=== PATIENT | female | born 2000 | race Caucasian/White ===

== ENCOUNTER 2023-10-17 06:30 | Inpatient (IN) | payer OTHER ==
[2023-10-17] MEDS ORDERED: AMPICILLIN SODIUM 2 GM VIAL ONE (07:45)
[2023-10-17] MEDS: ELECTROLYTE-148 SOLN 1,000 ML IV SCH (08:00)
[2023-10-17] MEDS: AMPICILLIN - 2 GM in SODIUM CHLORIDE 100 ML IVPB ONE (08:00)
[2023-10-17 08:29] VITALS: BMI 42.5
[2023-10-17 09:02] LABS: BASO % 0.2 % (0-2.0); EOS % 0.3 % (0-4.5); HEMATOCRIT 31.7 % (32.4-45.2); HEMOGLOBIN 10.2 GM/dL (10.7-15.3); LYMPH % 18.6 % (8-40); MCH 26.5 pg (25.7-33.7); MCHC 32.2 g/dl (32.0-36.0); MEAN CELL VOLUME 82.4 fl (80-96); MEAN PLT VOLUME 7.8 fl (7.5-11.1); MONO % 11.4 % (3.8-10.2); NEUT % 69.5 % (42.8-82.8); PLATELET COUNT 257 10^3/uL (134-434); RBC 3.85 M/mm3 (3.60-5.2); RDW 17.3 % (11.6-15.6); WHITE BLOOD COUNT 13.4 K/mm3 (4.0-10.0)
[2023-10-17 09:03] LABS: INR 0.96 (0.83-1.09)
[2023-10-17 09:06] LABS: ACTIVATED PTT 26.9 SECONDS (25.2-36.5)
[2023-10-17] MEDS ORDERED: OXYTOCIN 30 UNITS in 0.9% NS 30 UNIT/500 ML INFUS.BAG IVPB ONE ×2 (09:06→21:47)
[2023-10-17] MEDS: OXYTOCIN 30 UNITS in 0.9% NS 30 UNIT/500 ML INFUS.BAG IVPB SCH (09:10)
[2023-10-17 09:20] LABS: POTASSIUM 3.9 mmol/L (3.5-5.1)
[2023-10-17 09:21] LABS: CALCIUM 9.2 mg/dL (8.5-10.1)
[2023-10-17 09:22] LABS: BLOOD UREA NITROGEN 8.9 mg/dL (7-18)
[2023-10-17 09:25] LABS: CREATININE 0.6 mg/dL (0.55-1.3)
[2023-10-17 09:43] LABS: SYPHILIS W/ RPR CONF NON-REACTIVE (NONREACTIVE)
[2023-10-17 10:12] LABS: HIV INTERPRETATION NEGATIVE (NEGATIVE)
[2023-10-17] MEDS ORDERED: FENTANYL/BUPIVACAINE/NS/PF - PCEA - 50 ML DISP.SYRIN EP ONE ×2 (12:03→17:29)
[2023-10-17] MEDS ORDERED: AMPICILLIN SODIUM 1 GM VIAL ONE ×3 (12:13→19:59)
[2023-10-17] MEDS: AMPICILLIN - 1 GM in SODIUM CHLORIDE 100 ML IVPB SCH (12:15)
[2023-10-17] MEDS: PROMETHAZINE HCL 25 MG/1 ML VIAL IVPB ONE (12:18)
[2023-10-17] MEDS: BUTORPHANOL TARTRATE 1 MG/ML VIAL IVPB ONE (12:19)
[2023-10-17] MEDS ORDERED: BUPIVACAINE HCL/PF 0.25% (2.5MG/ML) 10 ML VIAL ONE (12:29)
[2023-10-17] MEDS: FENTANYL/BUPIVACAINE/NS/PF - PCEA - 50 ML DISP.SYRIN EP SCH (12:45)
[2023-10-17] MEDS ORDERED: NALOXONE HCL 0.4 MG/ML VIAL IVPUSH PRN (13:15)
[2023-10-17] MEDS ORDERED: FENTANYL CITRATE/PF 50 MCG/ML VIAL ONE (21:46)
[2023-10-17] MEDS ORDERED: ceFAZolin SODIUM 1 GM VIAL ONE (21:50)
[2023-10-17] MEDS ORDERED: METHYLERGONOVINE MALEATE 0.2 MG/1 ML AMP IM PRN (23:16)
[2023-10-17] MEDS ORDERED: ACETAMINOPHEN 1000 MG/100 ML BAG IVPB PRN (23:19)
[2023-10-17] MEDS: OXYTOCIN 20 UNITS in 0.9% NS 20 UNIT/1,000 ML INFUS.BAG IV SCH (23:30)
[2023-10-17] MEDS ORDERED: OXYTOCIN 20 UNITS in 0.9% NS 20 UNIT/1,000 ML INFUS.BAG IV ONE (23:31)
[2023-10-18] MEDS ORDERED: IBUPROFEN 800 MG/8 ML IJ IVPB ONE (00:22)
[2023-10-18] MEDS: IBUPROFEN 800 MG/8 ML IJ IVPB PRN (00:30)
[2023-10-18 02:01] VITALS: RESP 18
[2023-10-18 08:34] LABS: BASO % 0.1 % (0-2.0); EOS % 0.1 % (0-4.5); HEMATOCRIT 28.4 % (32.4-45.2); HEMOGLOBIN 9.2 GM/dL (10.7-15.3); LYMPH % 12.8 % (8-40); MCH 26.4 pg (25.7-33.7); MCHC 32.4 g/dl (32.0-36.0); MEAN CELL VOLUME 81.6 fl (80-96); MEAN PLT VOLUME 7.7 fl (7.5-11.1); MONO % 7.9 % (3.8-10.2); NEUT % 79.1 % (42.8-82.8); PLATELET COUNT 206 10^3/uL (134-434); RBC 3.49 M/mm3 (3.60-5.2); RDW 17.2 % (11.6-15.6); WHITE BLOOD COUNT 16.5 K/mm3 (4.0-10.0)
[2023-10-18] MEDS: PRENATAL VITAMINS W/ FOLIC ACID TABLET (FP) PO SCH (09:25)
[2023-10-18] MEDS: FERROUS SO4 325 MG TABLET (FP) PO SCH (09:25)
[2023-10-18] MEDS: oxyCODONE HCL 5 MG TABLET PO PRN (19:50)
[2023-10-18] MEDS: SIMETHICONE 80 MG TAB.CHEW (FP) PO PRN (19:50)
[2023-10-18] MEDS: IBUPROFEN 600 MG TABLET (FP) PO PRN (22:12)
[2023-10-18] MEDS: SENNOSIDES/DOCUSATE COMBO (SENNA PLUS) TABLET (UD) PO PRN (22:12)
[2023-10-19] MEDS: oxyCODONE HCL 5 MG TABLET PO PRN (11:14)
[2023-10-20] MEDS: ACETAMINOPHEN 325 MG TABLET (FP) PO PRN (08:39)
[2023-10-20] MEDS: BISACODYL 10 MG SUPP.RECT RC PRN (10:17)
[2023-10-20 10:32] VITALS: BP 131/79; PULSE 98; TEMP 98.5
== END 2023-10-20 14:05 | disposition home or self-care (01) | DRG 540 ==
LOC: JLDR 06:30 → J3W 10-18 01:52
PROVIDERS: ADMIT Obstetrics & Gynecology; ATTEND Obstetrics & Gynecology
PROC: 10D00Z1 Extraction of Products of Conception, Low, Open Approach (ICD-10-PCS; principal; 2023-10-17)
DX: O62.1 Secondary uterine inertia (principal); O99.824 Streptococcus B carrier state complicating childbirth; O99.213 Obesity complicating pregnancy, third trimester; O24.424 Gestational diabetes mellitus in childbirth, insulin controlled; Z3A.39 39 weeks gestation of pregnancy; Z37.0 Single live birth
CPT/HCPCS: 36415; 80048; 82962; 85025; 85610; 85730; 86780; 86803; 86850; 86900; 86901; 87389; 88307-TC